=== PATIENT | male | born 1940 | race Caucasian/White ===

== ENCOUNTER → 2017-08-31 | Outpatient (CLI) | payer MEDICARE, BC ==
[~2017-08-31] MED LIST: ASPI-1471 PO; ASPI-757 PO; ATOR10TA24 PO; CA C1TAB9 PO; CALC1TAB32 PO; CALC600T63 PO; CYAN10006 INJ; FLUT10SP; METO25TA23 PO; METO50TA19 PO; MULT-772 PO; TAMS0.4C70 PO
[2017-08-31 12:21] LABS: PLATELET COUNT, AUTOMATED 214 K/uL (150-450)
== END ==
LOC: LAB 11:59
PROVIDERS: ATTEND Family Medicine
DX: I10 Essential (primary) hypertension (principal); E53.8 Deficiency of other specified B group vitamins; E55.9 Vitamin D deficiency, unspecified; R53.83 Other fatigue; L60.3 Nail dystrophy
CPT/HCPCS: 36415; 82040; 82247; 82306; 82310; 82374; 82435; 82565; 82607; 82947; 84075; 84132; 84155; 84295; 84443; 84450; 84460; 84520; 85025

== ENCOUNTER → 2018-09-01 | Outpatient (CLI) | payer MEDICARE, BC ==
[~2018-09-01] MED LIST changes: +METO-253 PO; +[UNRECOGNIZED DRUG - CODE] IM
[2018-09-01 09:18] LABS: PLATELET COUNT, AUTOMATED 245 K/uL (150-450)
== END ==
LOC: LAB 08:55
PROVIDERS: ATTEND Family Medicine
DX: E78.5 Hyperlipidemia, unspecified (principal)
CPT/HCPCS: 36415; 82040; 82247; 82310; 82374; 82435; 82565; 82947; 84075; 84132; 84155; 84295; 84450; 84460; 84520; 85025

== ENCOUNTER → 2018-09-09 | Outpatient (CLI) | payer MEDICARE, BC | LOC: LAB 10:44 | PROVIDERS: ATTEND Urology | DX: Z13.89 Encounter for screening for other disorder (principal); R33.9 Retention of urine, unspecified | CPT/HCPCS: 81001 ==